=== PATIENT | female | born 1985 | race Asian ===

== ENCOUNTER → 2024-08-26 | Day surgery (SDC) | payer OTHER | END | disposition home or self-care (01) | LOC: JRADUS-SUR 09:45 | PROVIDERS: ATTEND Obstetrics & Gynecology Obstetrics | PROC: 0H9T3ZX Drainage of Right Breast, Percutaneous Approach, Diagnostic (ICD-10-PCS; principal; 2024-08-26) | DX: D24.1 Benign neoplasm of right breast (principal) | CPT/HCPCS: 19083; 76942-TC; 77065-TC; 87899; 88305-TC; A4648 ==